=== PATIENT | male | born 1935 | race Caucasian/White ===

== ENCOUNTER 2018-05-05 11:08 | Day surgery (SDC) | payer OTHER ==
[~2018-05-05] VITALS: Ht 172.7 cm; Wt 93.6 kg
[~2018-05-05 11:08] MED LIST: AMYLIPPROD; ASPI81CH PO; ASPI81EC; BP MED; HYDACE5; HYOS0.375T PO; LISI20 PO; METTREX2.5 PO; Norco 5-325 Ta1 EACH PO; OXYC10TA19 PO; Prednisone10 MG PO; ROFE25; Vitamin B Comple1 EA PO; WARF4 PO
== END 2018-05-05 13:26 | disposition home or self-care (01) ==
LOC: ORSCSDS 11:08
PROVIDERS: Ophthalmology
PROC: 08RK3JZ Replacement of Left Lens with Synthetic Substitute, Percutaneous Approach (ICD-10-PCS; principal; 2018-05-05 12:30)
DX: H25.12 Age-related nuclear cataract, left eye (principal); H21.81 Floppy iris syndrome; I12.9 Hypertensive chronic kidney disease with stage 1 through stage 4 chronic kidney disease, or unspecified chronic kidney disease; N18.3 Chronic kidney disease, stage 3 (moderate); E78.5 Hyperlipidemia, unspecified; N40.0 Benign prostatic hyperplasia without lower urinary tract symptoms; Z79.82 Long term (current) use of aspirin; Z79.899 Other long term (current) drug therapy
CPT/HCPCS: J2250; J3010; J7120; V2632

== ENCOUNTER 2020-05-20 00:34 | Day surgery (SDC) | payer OTHER ==
[~2020-05-20 00:34] MED LIST changes: +FOLI1 PO; +LOSA50 PO; +OLOP.1OPSO BOTHEYES; +TAMS.4ER PO
== END 2020-05-20 22:49 | disposition home or self-care (01) ==
LOC: WOUND 00:34
DX: L89.322 Pressure ulcer of left buttock, stage 2 (principal); I10 Essential (primary) hypertension; J44.9 Chronic obstructive pulmonary disease, unspecified; E78.5 Hyperlipidemia, unspecified; Z88.1 Allergy status to other antibiotic agents; Z79.82 Long term (current) use of aspirin; Z79.899 Other long term (current) drug therapy
CPT/HCPCS: G0463

== ENCOUNTER 2020-05-30 00:29 | Day surgery (SDC) | payer OTHER | END 2020-05-30 22:44 | disposition home or self-care (01) | LOC: WOUND 00:29 | DX: L89.892 Pressure ulcer of other site, stage 2 (principal) | CPT/HCPCS: G0463 ==

== ENCOUNTER 2020-07-23 09:15 | Day surgery (SDC) | payer OTHER ==
[~2020-07-23] VITALS: Ht 170.2 cm; Wt 96.1 kg
[~2020-07-23 09:15] MED LIST changes: +VITAMIN D325 MC3 PO
== END 2020-07-23 11:20 | disposition home or self-care (01) ==
LOC: ORSCSDS 09:15
PROVIDERS: Student in an Organized Health Care Education/Training Program
PROC: 0DB58ZX Excision of Esophagus, Via Natural or Artificial Opening Endoscopic, Diagnostic (ICD-10-PCS; principal; 2020-07-23 10:30)
PROC: 0DB88ZX Excision of Small Intestine, Via Natural or Artificial Opening Endoscopic, Diagnostic (ICD-10-PCS; principal; 2020-07-23 10:30)
PROC: 0DB68ZX Excision of Stomach, Via Natural or Artificial Opening Endoscopic, Diagnostic (ICD-10-PCS; principal; 2020-07-23 10:30)
DX: R13.10 Dysphagia, unspecified (principal); K29.80 Duodenitis without bleeding; B37.9 Candidiasis, unspecified; I10 Essential (primary) hypertension; K29.70 Gastritis, unspecified, without bleeding; D64.9 Anemia, unspecified; E78.5 Hyperlipidemia, unspecified; K21.9 Gastro-esophageal reflux disease without esophagitis; J44.9 Chronic obstructive pulmonary disease, unspecified; E66.9 Obesity, unspecified; Z68.35 Body mass index [BMI] 35.0-35.9, adult; Z68.33 Body mass index [BMI] 33.0-33.9, adult; Z79.82 Long term (current) use of aspirin; Z79.899 Other long term (current) drug therapy
CPT/HCPCS: 88305; 88342; J2704; J7120

== ENCOUNTER 2020-08-22 07:37 | Day surgery (SDC) | payer OTHER | END 2020-08-22 23:02 | disposition home or self-care (01) | LOC: WOUND 07:37 | DX: L89.892 Pressure ulcer of other site, stage 2 (principal); L40.50 Arthropathic psoriasis, unspecified; I10 Essential (primary) hypertension; K21.9 Gastro-esophageal reflux disease without esophagitis; E78.5 Hyperlipidemia, unspecified; J44.9 Chronic obstructive pulmonary disease, unspecified; Z96.651 Presence of right artificial knee joint; Z79.82 Long term (current) use of aspirin; Z79.899 Other long term (current) drug therapy; Z88.1 Allergy status to other antibiotic agents; Z88.8 Allergy status to other drugs, medicaments and biological substances; Z91.018 Allergy to other foods | CPT/HCPCS: G0463 ==

== ENCOUNTER 2020-12-01 08:37 | Inpatient (IN) | payer OTHER, MEDICARE ==
[~2020-12-01] VITALS: Ht 170.2 cm; Wt 90.0 kg
[~2020-12-01 08:37] MED LIST changes: -ASPI81CH PO; +Aspir 8181 MG PO
[2020-12-01 09:21] LABS: BASOPHILS ABSOLUTE AUTO 0.02 K/mm3 (0.00-0.23); BASOPHILS PERCENT AUTO 0 % (0-2); EOSINOPHILS ABSOLUTE AUTO 0.02 K/mm3 (0.00-0.68); EOSINOPHILS PERCENT AUTO 0 % (0-6); Hematocrit 35.5 % (37.0-53.0); Hemoglobin 11.6 g/dL (13.5-17.5); IMMATURE GRAN ABSOLUTE AUTO 0.04 K/mm3 (0.00-0.10); IMMATURE GRAN PERCENT AUTO 0 % (0-1); LYMPHOCYTES ABSOLUTE AUTO 0.58 K/mm3 (0.84-5.20); LYMPHOCYTES PERCENT AUTO 5 % (21-46); MONOCYTES ABSOLUTE AUTO 0.93 K/mm3 (0.16-1.47); MONOCYTES PERCENT AUTO 8 % (4-13); Mean Corpuscular HGB 31.4 pg (26.0-34.0); Mean Corpuscular HGB Conc 32.7 g/dL (31.5-36.5); Mean Corpuscular Volume 96 fL (80-100); Mean Platelet Volume 9.8 fL (9.1-12.4); NEUTROPHILS ABSOLUTE AUTO 9.83 K/mm3 (1.96-9.15); NEUTROPHILS PERCENT AUTO 86 % (41-73); Platelet Count 182 K/mm3 (150-400); RDW Coefficient Variation 14.6 % (11.7-14.2); RDW Standard Deviation 51.2 fL (35.1-46.3); Red Blood Cell Count 3.69 M/mm3 (4.30-5.90); White Blood Cell Count 11.42 K/mm3 (4.00-11.30)
[2020-12-01 09:43] LABS: Alanine Aminotransfer (ALT/SGP 13 U/L (12-78); Albumin/Globulin Ratio 0.8 (0.8-1.8); Alk Phos 70 U/L (50-136); Anion Gap 6 mmol/L (6-16); Aspartate Aminotrans (AST/SGOT 14 U/L (12-37); Bilirubin, Total 0.9 mg/dL (0.1-1.0); Blood Urea Nitrogen 27 mg/dL (8-24); Bun/Creatinine Ratio 16.8 (12.0-20.0); CO2, Blood 24 mmol/L (21-32); Calcium, Blood 8.6 mg/dL (8.5-10.1); Chloride, Blood 106 mmol/L (98-108); Creatinine, Blood 1.61 mg/dL (0.60-1.20); Globulin, Blood 3.9 g/dL (2.2-4.0); Glomerular Filtration Rate 43 (60-); Glucose, Blood 115 mg/dL (70-99); Potassium, Blood 3.9 mmol/L (3.5-5.5); Sodium, Blood 136 mmol/L (136-145); Total Protein, Blood 6.9 g/dL (6.4-8.2); Troponin I <0.015 ng/mL (0.000-0.040)
[2020-12-01 09:46] LABS: Thyroid Stimulating Hormone 0.507 uIU/mL (0.360-4.800)
[2020-12-01 10:06] LABS: Source, Urine Voided
[2020-12-01 10:10] LABS: Bilirubin, Urine Neg (Neg); Blood, Urine 3+ (Neg); Glucose Qualitative, Urine Neg (Neg); Ketones, Urine 1+ (Neg); Leukocyte Esterase, Urine Neg (Neg); Nitrite, Urine Neg (Neg); Protein, Urine 3+ (Neg); Specific Gravity, Urine 1.015 (1.003-1.022); Urobilinogen, Urine NORM (Normal)
[2020-12-01 10:12] LABS: Influenza A, PCR NEGATIVE (NEGATIVE); Influenza B, PCR NEGATIVE (NEGATIVE); Resp Syncytial Virus, PCR NEGATIVE (NEGATIVE); SARS-Cov-2 (COVID-19) PCR, MMC NEGATIVE (NEGATIVE)
[2020-12-01 10:19] LABS: Appearance, Urine Clear (Clear); Color, Urine Yellow (P-Yellow)
[2020-12-01 10:22] LABS: Amorphous Light (0-Heavy); Bacteria Rare /hpf; Squamous Epithelial Cells Few /hpf (Few); White Blood Cells, Urine 0-2 /hpf (0-5)
[2020-12-01] MEDS ORDERED: FINA5 PO (12:50)
--- NOTE | 2020-12-01 16:57 | NUR ---
ADMISSION AND SHIFT SUMMARY PT ARRIVED TO UNIT AT APPROX 1250 FROM THE ED. PT IS A&Ox4 AND DENIES ANY PAIN, SOB, COUGH, OR DISTRESS. PT ABLE TO BWAT AND REQUIRED 2P ASSIST c GAIT BELT TO TRANSFER FROM [facility] TO BED. CALL LIGHT IS WITHIN REACH AND PT AWARE OF HIS LIMITATIONS. BED ALARM IS ON FOR EXTRA PRECAUTION DUE TO PT BEING HIGH FALL RISK. CHEST X RAY SHOWS PNA OF THE R LUNG, LUNG SOUNDS ARE CLEAR, SLIGHTY DIMINISHED ON R SIDE. PT ON RA AND SATING ABOVE THE 90'S. ADMISSION COMPLETED, INFORMATION PROVIDED BY PT AND . PT HAD A BM THIS SHIFT AND IS USES URINAL INDEPENDENTLY. PT IS CURRENTLY LYING IN BED VISITING WITH .
[2020-12-02 04:27] LABS: BASOPHILS ABSOLUTE AUTO 0.01 K/mm3 (0.00-0.23); BASOPHILS PERCENT AUTO 0 % (0-2); EOSINOPHILS ABSOLUTE AUTO 0.11 K/mm3 (0.00-0.68); EOSINOPHILS PERCENT AUTO 2 % (0-6); Hematocrit 32.4 % (37.0-53.0); Hemoglobin 10.4 g/dL (13.5-17.5); IMMATURE GRAN ABSOLUTE AUTO 0.02 K/mm3 (0.00-0.10); IMMATURE GRAN PERCENT AUTO 0 % (0-1); LYMPHOCYTES ABSOLUTE AUTO 0.79 K/mm3 (0.84-5.20); LYMPHOCYTES PERCENT AUTO 11 % (21-46); MONOCYTES ABSOLUTE AUTO 0.79 K/mm3 (0.16-1.47); MONOCYTES PERCENT AUTO 11 % (4-13); Mean Corpuscular HGB Conc 32.1 g/dL (31.5-36.5); Mean Corpuscular Volume 97 fL (80-100); Mean Platelet Volume 9.7 fL (9.1-12.4); NEUTROPHILS PERCENT AUTO 76 % (41-73); Platelet Count 179 K/mm3 (150-400); RDW Coefficient Variation 14.7 % (11.7-14.2); RDW Standard Deviation 51.8 fL (35.1-46.3); Red Blood Cell Count 3.35 M/mm3 (4.30-5.90); White Blood Cell Count 7.22 K/mm3 (4.00-11.30)
[2020-12-02 04:48] LABS: Albumin, Blood 2.4 g/dL (3.4-5.0); Albumin/Globulin Ratio 0.6 (0.8-1.8); Bilirubin, Total 0.5 mg/dL (0.1-1.0); Calcium, Blood 8.2 mg/dL (8.5-10.1); Creatinine, Blood 1.53 mg/dL (0.60-1.20); Globulin, Blood 3.7 g/dL (2.2-4.0); Magnesium, Blood 1.9 mg/dL (1.6-2.4); Potassium, Blood 3.9 mmol/L (3.5-5.5); Total Protein, Blood 6.1 g/dL (6.4-8.2)
--- NOTE | 2020-12-02 05:28 | NUR ---
Samm had no complaints of pain or discomfort overnight. he slept well and stayed in bed using the urinal when he had to void... Urine is clear yellow. VSS. pleasant and cooperative with care,
[2020-12-02 07:58] LABS: Percent Saturation 12.4 % (20.0-50.0)
[2020-12-02 10:51] LABS: Free Thyroxine 1.35 ng/dL (0.70-1.60); Triiodothyronine, Free 1.64 pg/mL (2.18-3.98)
--- NOTE | 2020-12-02 12:47 | NUR ---
Echocardiogram completed.
--- NOTE | 2020-12-02 18:50 | NUR ---
SHIFT SUMMARY: NO ACUTE CHANGES TO REPORT THIS SHIFT. PT A&O; IMPULSIVE; FORGETFUL; CALM AND COOPERATIVE WITH CARE. NO C/O PAIN THIS SHIFT. PT WEAK; MULTIPLE GROUND-LEVEL FALLS @ HOME; HEAD CT NEGATIVE. PNEUMONIA; BLOOD CULTURES STARTED; EMPIRIC ABX CONTINUING. BED ALARM & CHAIR ALARM ON FOR SAFETY. REPORT GIVEN TO ONCOMING RN.
--- NOTE | 2020-12-03 03:40 | NUR ---
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 PLEASANT AND COOPERATIVE WITH CARE. DENIES PAIN OR SOB. CURRENTLY ON RA WITH SATS GREATER THAN 92. VSS, NO ACUTE CHANGES AT THIS TIME. BED IN LOWEST POSITION WITH CALL LIGHT IN REACH. WILL CONTINUE TO MONITOR AND REPORT TO ONCOMING RN.
[2020-12-03 04:30] LABS: BASOPHILS ABSOLUTE AUTO 0.02 K/mm3 (0.00-0.23); BASOPHILS PERCENT AUTO 0 % (0-2); EOSINOPHILS ABSOLUTE AUTO 0.14 K/mm3 (0.00-0.68); EOSINOPHILS PERCENT AUTO 3 % (0-6); Hematocrit 31.9 % (37.0-53.0); Hemoglobin 10.2 g/dL (13.5-17.5); IMMATURE GRAN ABSOLUTE AUTO 0.01 K/mm3 (0.00-0.10); IMMATURE GRAN PERCENT AUTO 0 % (0-1); LYMPHOCYTES ABSOLUTE AUTO 0.78 K/mm3 (0.84-5.20); LYMPHOCYTES PERCENT AUTO 15 % (21-46); MONOCYTES ABSOLUTE AUTO 0.22 K/mm3 (0.16-1.47); MONOCYTES PERCENT AUTO 4 % (4-13); Mean Corpuscular Volume 97 fL (80-100); Mean Platelet Volume 9.9 fL (9.1-12.4); NEUTROPHILS ABSOLUTE AUTO 4.18 K/mm3 (1.96-9.15); NEUTROPHILS PERCENT AUTO 78 % (41-73); Platelet Count 207 K/mm3 (150-400); RDW Coefficient Variation 14.7 % (11.7-14.2); RDW Standard Deviation 51.6 fL (35.1-46.3); Red Blood Cell Count 3.29 M/mm3 (4.30-5.90); White Blood Cell Count 5.35 K/mm3 (4.00-11.30)
[2020-12-03 04:51] LABS: Albumin, Blood 2.4 g/dL (3.4-5.0); Albumin/Globulin Ratio 0.7 (0.8-1.8); Bilirubin, Total 0.4 mg/dL (0.1-1.0); Bun/Creatinine Ratio 19.6 (12.0-20.0); Calcium, Blood 8.2 mg/dL (8.5-10.1); Creatinine, Blood 1.48 mg/dL (0.60-1.20); Globulin, Blood 3.5 g/dL (2.2-4.0); Potassium, Blood 3.7 mmol/L (3.5-5.5); Total Protein, Blood 5.9 g/dL (6.4-8.2)
[2020-12-03] MEDS ORDERED: METO25 PO (15:43)
[2020-12-03] MEDS ORDERED: LEVFLO500 (15:45)
--- NOTE | 2020-12-03 18:06 | NUR ---
PATIENT DISCHARGE: PATIENT DISCHARGED TO HOME / XFR TO HOME HEALTH THIS SHIFT. MEDICATION RECONCILIATION COMPLETED; MED LIST FAXED TO [facility]. DISCHARGE EDUCATION COMPLETED WITH PATIENT AND FAMILY. PATIENT TRANSPORTED TO EXIT BY [facility] STAFF WITH WHEELCHAIR AT 1722. PATIENT DEPARTED [facility] VIA PRIVATE AUTO.
== END 2020-12-03 16:45 | disposition home health service (06) | DRG 195 ==
LOC: ER 08:37 → MEDS 11:14
PROVIDERS: Emergency Medicine; ADMIT Internal Medicine
DX: J18.9 Pneumonia, unspecified organism (principal); I12.9 Hypertensive chronic kidney disease with stage 1 through stage 4 chronic kidney disease, or unspecified chronic kidney disease; N18.9 Chronic kidney disease, unspecified; I51.7 Cardiomegaly; Z20.822 Contact with and (suspected) exposure to COVID-19; L40.50 Arthropathic psoriasis, unspecified; E04.1 Nontoxic single thyroid nodule; N40.0 Benign prostatic hyperplasia without lower urinary tract symptoms; Z79.82 Long term (current) use of aspirin
CPT/HCPCS: 0241U; 36415; 70450; 71045; 71260; 76536; 80053; 81001; 82607; 82728; 82746; 83540; 83550; 83605; 83735; 83880; 84145; 84439; 84443; 84481; 84484; 85025; 85651; 87040; 93005; 93010; 93306; 96365; 96366; 96372-59; 97116; 97530; 99285-25; A9270; J1650; J1956; J3420; J7030; J8610; Q9967

== ENCOUNTER 2021-01-14 00:35 | Day surgery (SDC) | payer OTHER ==
[~2021-01-14 00:35] MED LIST changes: +FINA5 PO; +LEVFLO500; +METO25 PO
== END 2021-01-14 22:40 | disposition home or self-care (01) ==
LOC: WOUND 00:35
DX: L89.312 Pressure ulcer of right buttock, stage 2 (principal); L89.322 Pressure ulcer of left buttock, stage 2; I10 Essential (primary) hypertension; K21.9 Gastro-esophageal reflux disease without esophagitis; E78.5 Hyperlipidemia, unspecified; J44.9 Chronic obstructive pulmonary disease, unspecified; K58.9 Irritable bowel syndrome, unspecified
CPT/HCPCS: G0463

== ENCOUNTER 2021-01-28 02:56 | Day surgery (SDC) | payer OTHER | END 2021-01-28 23:01 | disposition home or self-care (01) | LOC: WOUND 02:56 | DX: L89.312 Pressure ulcer of right buttock, stage 2 (principal); L89.322 Pressure ulcer of left buttock, stage 2 | CPT/HCPCS: G0463 ==

== ENCOUNTER 2021-07-12 18:22 | Emergency (ER) | payer OTHER ==
[~2021-07-12] VITALS: Ht 172.7 cm; Wt 70.3 kg
[2021-07-12 19:02] LABS: BASOPHILS PERCENT AUTO 0 % (0-2); EOSINOPHILS PERCENT AUTO 0 % (0-6); Hematocrit 34.1 % (37.0-53.0); Hemoglobin 11.2 g/dL (13.5-17.5); IMMATURE GRAN ABSOLUTE AUTO 0.02 K/mm3 (0.00-0.10); IMMATURE GRAN PERCENT AUTO 1 % (0-1); LYMPHOCYTES ABSOLUTE AUTO 0.49 K/mm3 (0.84-5.20); LYMPHOCYTES PERCENT AUTO 15 % (21-46); MONOCYTES ABSOLUTE AUTO 0.12 K/mm3 (0.16-1.47); MONOCYTES PERCENT AUTO 4 % (4-13); Mean Corpuscular HGB 32.1 pg (26.0-34.0); Mean Corpuscular HGB Conc 32.8 g/dL (31.5-36.5); Mean Corpuscular Volume 98 fL (80-100); Mean Platelet Volume 10.3 fL (9.1-12.4); NEUTROPHILS ABSOLUTE AUTO 2.73 K/mm3 (1.96-9.15); NEUTROPHILS PERCENT AUTO 81 % (41-73); Platelet Count 100 K/mm3 (150-400); RDW Coefficient Variation 14.5 % (11.7-14.2); RDW Standard Deviation 51.8 fL (35.1-46.3); Red Blood Cell Count 3.49 M/mm3 (4.30-5.90); White Blood Cell Count 3.36 K/mm3 (4.00-11.30)
[2021-07-12 19:13] LABS: Albumin/Globulin Ratio 0.9 (0.8-1.8); Bilirubin, Total 0.7 mg/dL (0.1-1.0); Bun/Creatinine Ratio 15.7 (12.0-20.0); Calcium, Blood 8.1 mg/dL (8.5-10.1); Creatinine, Blood 1.72 mg/dL (0.60-1.20); Globulin, Blood 3.3 g/dL (2.2-4.0); Potassium, Blood 4.2 mmol/L (3.5-5.5); Total Protein, Blood 6.3 g/dL (6.4-8.2)
[2021-07-12] MEDS ORDERED: METTREX2.5 PO (21:32)
[2021-07-12] MEDS ORDERED: METO25 PO (21:33)
[2021-07-12] MEDS ORDERED: LOSA25 PO ×2 (21:34→21:49)
[2021-07-12] MEDS ORDERED: C COMPLEX1000 M1 PO (21:34)
[2021-07-12] MEDS ORDERED: Vitamin B Comple1 EA PO (21:35)
[2021-07-12] MEDS ORDERED: IRON PO (21:36)
== END 2021-07-12 22:34 | disposition home or self-care (01) ==
LOC: ER 18:22
PROVIDERS: Emergency Medicine
DX: U07.1 COVID-19 (principal); I10 Essential (primary) hypertension; Z88.1 Allergy status to other antibiotic agents; Z79.899 Other long term (current) drug therapy
CPT/HCPCS: 36415; 71045; 80053; 83605; 85025; 87040; 99285-25; A9270; M0243; Q0243

== ENCOUNTER 2021-07-23 10:29 | Day surgery (SDC) | payer OTHER ==
[~2021-07-23 10:29] MED LIST changes: +C COMPLEX1000 M1 PO; +IRON PO; +LOSA25 PO
== END 2021-07-23 23:23 | disposition home or self-care (01) ==
LOC: WOUND 10:29
DX: L89.322 Pressure ulcer of left buttock, stage 2 (principal); L89.311 Pressure ulcer of right buttock, stage 1; I10 Essential (primary) hypertension; E78.5 Hyperlipidemia, unspecified; K21.9 Gastro-esophageal reflux disease without esophagitis; J44.9 Chronic obstructive pulmonary disease, unspecified; Z88.1 Allergy status to other antibiotic agents
CPT/HCPCS: G0463

== ENCOUNTER 2021-08-05 12:09 | Emergency (ER) | payer OTHER ==
[~2021-08-05] VITALS: Ht 172.7 cm; Wt 80.7 kg
[2021-08-05 13:12] LABS: BASOPHILS ABSOLUTE AUTO 0.03 K/mm3 (0.00-0.23); BASOPHILS PERCENT AUTO 0 % (0-2); EOSINOPHILS ABSOLUTE AUTO 0.24 K/mm3 (0.00-0.68); EOSINOPHILS PERCENT AUTO 3 % (0-6); Hematocrit 35.2 % (37.0-53.0); Hemoglobin 11.4 g/dL (13.5-17.5); IMMATURE GRAN ABSOLUTE AUTO 0.02 K/mm3 (0.00-0.10); IMMATURE GRAN PERCENT AUTO 0 % (0-1); LYMPHOCYTES ABSOLUTE AUTO 1.48 K/mm3 (0.84-5.20); LYMPHOCYTES PERCENT AUTO 17 % (21-46); MONOCYTES ABSOLUTE AUTO 0.48 K/mm3 (0.16-1.47); MONOCYTES PERCENT AUTO 5 % (4-13); Mean Corpuscular HGB Conc 32.4 g/dL (31.5-36.5); Mean Corpuscular Volume 96 fL (80-100); Mean Platelet Volume 10.3 fL (9.1-12.4); NEUTROPHILS ABSOLUTE AUTO 6.73 K/mm3 (1.96-9.15); NEUTROPHILS PERCENT AUTO 75 % (41-73); Platelet Count 199 K/mm3 (150-400); RDW Coefficient Variation 13.9 % (11.7-14.2); RDW Standard Deviation 49.1 fL (35.1-46.3); Red Blood Cell Count 3.68 M/mm3 (4.30-5.90); White Blood Cell Count 8.98 K/mm3 (4.00-11.30)
[2021-08-05 13:29] LABS: International Normalized Ratio 1.05
[2021-08-05 13:34] LABS: Albumin, Blood 2.8 g/dL (3.4-5.0); Albumin/Globulin Ratio 0.7 (0.8-1.8); Bilirubin, Total 0.8 mg/dL (0.1-1.0); Bun/Creatinine Ratio 15.3 (12.0-20.0); Calcium, Blood 8.8 mg/dL (8.5-10.1); Creatinine, Blood 1.44 mg/dL (0.60-1.20); Globulin, Blood 4.3 g/dL (2.2-4.0); Potassium, Blood 3.7 mmol/L (3.5-5.5); Total Protein, Blood 7.1 g/dL (6.4-8.2)
[2021-08-05] MEDS ORDERED: Protopic100 G1 (15:47)
== END 2021-08-05 17:01 | disposition home or self-care (01) ==
LOC: ER 12:09
PROVIDERS: Physician Assistant
DX: I26.99 Other pulmonary embolism without acute cor pulmonale (principal); I12.9 Hypertensive chronic kidney disease with stage 1 through stage 4 chronic kidney disease, or unspecified chronic kidney disease; K21.9 Gastro-esophageal reflux disease without esophagitis; N18.9 Chronic kidney disease, unspecified; Z88.8 Allergy status to other drugs, medicaments and biological substances; Z88.1 Allergy status to other antibiotic agents; Z79.899 Other long term (current) drug therapy; Z79.82 Long term (current) use of aspirin
CPT/HCPCS: 36415; 80053; 85025; 85610; 85730; 93005; 93010; 99283-25

== ENCOUNTER → 2021-08-13 | Outpatient (CLI) | payer OTHER ==
[~2021-08-13] MED LIST changes: +Protopic100 G1
[2021-08-14 01:05] LABS: Campylobacter Sp Not Detected (NOT DETECT)
[2021-08-14 01:06] LABS: Adenovirus F 40/41 Not Detected (NOT DETECT); Astrovirus Not Detected (NOT DETECT); Cryptosporidium Not Detected (NOT DETECT); Cyclospora Cayetanensis Not Detected (NOT DETECT); E. Coli O157 Not Detected (NOT DETECT); Entamoeba Histolytica Not Detected (NOT DETECT); Enteroaggregative E. coli-EAEC Not Detected (NOT DETECT); Enteropathogenic E. coli-EPEC Not Detected (NOT DETECT); Enterotoxigenic E. coli-ETEC Not Detected (NOT DETECT); Giardia Lamblia Not Detected (NOT DETECT); Norovirus GI/GII Not Detected (NOT DETECT); Plesiomonas Shigelloides Not Detected (NOT DETECT); Rotavirus A Not Detected (NOT DETECT); Salmonella Sp Not Detected (NOT DETECT); Sapovirus Not Detected (NOT DETECT); Shiga Toxin-prod E. coli-STEC Not Detected (NOT DETECT); Shigella/Enteroin E. coli-EIEC Not Detected (NOT DETECT); Vibrio Cholerae Not Detected (NOT DETECT); Vibrio Sp Not Detected (NOT DETECT); Yersinia Enterocolitica Not Detected (NOT DETECT)
== END | disposition home or self-care (01) ==
LOC: LAB FUT 08-12 13:25 → LAB SHORT 07:00 → LAB 07:00
PROVIDERS: Family Medicine
DX: R19.7 Diarrhea, unspecified (principal)
CPT/HCPCS: 0097U

== ENCOUNTER 2021-10-02 15:24 | Inpatient (IN) | payer OTHER ==
[~2021-10-02] VITALS: Ht 170.2 cm; Wt 93.5 kg
[2021-10-02 16:51] LABS: BASOPHILS ABSOLUTE AUTO 0.03 K/mm3 (0.00-0.23); BASOPHILS PERCENT AUTO 0 % (0-2); EOSINOPHILS ABSOLUTE AUTO 0.14 K/mm3 (0.00-0.68); EOSINOPHILS PERCENT AUTO 2 % (0-6); Hematocrit 35.6 % (37.0-53.0); Hemoglobin 11.3 g/dL (13.5-17.5); IMMATURE GRAN ABSOLUTE AUTO 0.04 K/mm3 (0.00-0.10); IMMATURE GRAN PERCENT AUTO 0 % (0-1); LYMPHOCYTES ABSOLUTE AUTO 1.19 K/mm3 (0.84-5.20); LYMPHOCYTES PERCENT AUTO 13 % (21-46); MONOCYTES ABSOLUTE AUTO 0.34 K/mm3 (0.16-1.47); MONOCYTES PERCENT AUTO 4 % (4-13); Mean Corpuscular HGB 29.1 pg (26.0-34.0); Mean Corpuscular HGB Conc 31.7 g/dL (31.5-36.5); Mean Corpuscular Volume 92 fL (80-100); Mean Platelet Volume 10.6 fL (9.1-12.4); NEUTROPHILS ABSOLUTE AUTO 7.68 K/mm3 (1.96-9.15); NEUTROPHILS PERCENT AUTO 82 % (41-73); Platelet Count 299 K/mm3 (150-400); RDW Coefficient Variation 14.1 % (11.7-14.2); RDW Standard Deviation 47.4 fL (35.1-46.3); Red Blood Cell Count 3.88 M/mm3 (4.30-5.90); White Blood Cell Count 9.42 K/mm3 (4.00-11.30)
[2021-10-02 16:55] LABS: Albumin, Blood 2.8 g/dL (3.4-5.0); Albumin/Globulin Ratio 0.7 (0.8-1.8); Bilirubin, Total 0.4 mg/dL (0.1-1.0); Bun/Creatinine Ratio 14.4 (12.0-20.0); Calcium, Blood 8.7 mg/dL (8.5-10.1); Creatinine, Blood 1.53 mg/dL (0.60-1.20); Globulin, Blood 3.9 g/dL (2.2-4.0); Total Protein, Blood 6.7 g/dL (6.4-8.2)
[2021-10-02 17:15] LABS: Troponin I 0.834 ng/mL (0.000-0.040)
[2021-10-02] MEDS ORDERED: ELIQUIS2.5 M1 PO (18:11)
[2021-10-02] MEDS ORDERED: TAMSULOSIN HCL0.4 M1 PO (18:11)
[2021-10-02] MEDS ORDERED: METO50ER PO (18:12)
[2021-10-02] MEDS ORDERED: TRAM50 PO (18:13)
[2021-10-02] MEDS ORDERED: FINA5 PO (18:13)
[2021-10-02] MEDS ORDERED: FOLI1 PO (18:13)
[2021-10-02 18:54] LABS: International Normalized Ratio 1.14; Prothrombin Time Results 11.9 Sec (9.7-11.5)
[2021-10-03 02:06] LABS: BASOPHILS ABSOLUTE AUTO 0.02 K/mm3 (0.00-0.23); BASOPHILS PERCENT AUTO 0 % (0-2); EOSINOPHILS ABSOLUTE AUTO 0.15 K/mm3 (0.00-0.68); EOSINOPHILS PERCENT AUTO 2 % (0-6); Hematocrit 35.4 % (37.0-53.0); Hemoglobin 11.3 g/dL (13.5-17.5); IMMATURE GRAN ABSOLUTE AUTO 0.04 K/mm3 (0.00-0.10); IMMATURE GRAN PERCENT AUTO 0 % (0-1); LYMPHOCYTES ABSOLUTE AUTO 1.22 K/mm3 (0.84-5.20); LYMPHOCYTES PERCENT AUTO 14 % (21-46); MONOCYTES ABSOLUTE AUTO 0.32 K/mm3 (0.16-1.47); MONOCYTES PERCENT AUTO 4 % (4-13); Mean Corpuscular HGB 29.1 pg (26.0-34.0); Mean Corpuscular HGB Conc 31.9 g/dL (31.5-36.5); Mean Corpuscular Volume 91 fL (80-100); Mean Platelet Volume 9.9 fL (9.1-12.4); NEUTROPHILS ABSOLUTE AUTO 7.15 K/mm3 (1.96-9.15); NEUTROPHILS PERCENT AUTO 80 % (41-73); Platelet Count 277 K/mm3 (150-400); RDW Coefficient Variation 14.1 % (11.7-14.2); RDW Standard Deviation 47.6 fL (35.1-46.3); Red Blood Cell Count 3.88 M/mm3 (4.30-5.90)
[2021-10-03 02:30] LABS: Albumin, Blood 2.8 g/dL (3.4-5.0); Albumin/Globulin Ratio 0.7 (0.8-1.8); Bilirubin, Total 0.4 mg/dL (0.1-1.0); Bun/Creatinine Ratio 15.9 (12.0-20.0); Calcium, Blood 8.7 mg/dL (8.5-10.1); Creatinine, Blood 1.64 mg/dL (0.60-1.20); Globulin, Blood 3.8 g/dL (2.2-4.0); Potassium, Blood 3.7 mmol/L (3.5-5.5); Total Protein, Blood 6.6 g/dL (6.4-8.2)
[2021-10-03 02:32] LABS: Troponin I 0.828 ng/mL (0.000-0.040)
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
--- NOTE | 2021-10-03 11:31 | NUR ---
PATIENT IS ALERT AND ORIENTED X4. NEURO WNL. ABLE TO MOVE ALL EXTREMITIES AND TURN SELF IN BED. PERRLA. DENIES NUMBNESS/TINGLING. ON ROOM AIR SATING ABOVE 94%. TELE SHOWING SINUS RHYTHM WITH PAC'S. HR 90'S. BP STABLE. DENIES CHEST PAIN/PRESSURE. HEPARIN DRIP INFUSING. MINIMAL EDEMA TO BLE. DENIES ABDOMINAL PAIN/NAUSEA. TOLERATING PO DIET. DR. AVALOS IN TO SEE PATIENT THIS MORNING DISCUSSED CARDIAC CATH. PATIENT SPOKE WITH AND VERBALIZED HE DID NOT WANT ANY PROCEDURES DONE. DR. AVALOS AND CARE TEAM UPDATED. ECHO AND EKG DONE THIS AM. PENDING ECHO RESULTS. USING URINAL IN BED. CALL LIGHT IN REACH. DENIES NEEDS AT THIS TIME. WILL CONTINUE TO MONITOR.
--- NOTE | 2021-10-03 18:19 | NUR ---
SHIFT SUMMARY: NO ACUTE CHANGES. SEE PREVIOUS NOTE. NO CHANGES IN TELE. PATIENT REMAINS CHEST PAIN FREE. HEPARIN DRIP INFUSING. USING BS WITH [address] Steele IN TO SEE PATIENT. PLAN FOR TO COME IN TOMMORROW AT 0900 TO DISCUSS ANGIOGRAM WITH DOCTORS. TOLERATING PO DIET. DENIES NEEDS AT THIS TIME. VITAL SIGNS STABLE. WILL CONTINUE TO MONITOR AND REPORT OFF.
[2021-10-04 04:16] LABS: BASOPHILS ABSOLUTE AUTO 0.02 K/mm3 (0.00-0.23); BASOPHILS PERCENT AUTO 0 % (0-2); EOSINOPHILS ABSOLUTE AUTO 0.19 K/mm3 (0.00-0.68); EOSINOPHILS PERCENT AUTO 2 % (0-6); Hematocrit 35.3 % (37.0-53.0); Hemoglobin 11.1 g/dL (13.5-17.5); IMMATURE GRAN ABSOLUTE AUTO 0.03 K/mm3 (0.00-0.10); IMMATURE GRAN PERCENT AUTO 0 % (0-1); LYMPHOCYTES PERCENT AUTO 17 % (21-46); MONOCYTES ABSOLUTE AUTO 0.38 K/mm3 (0.16-1.47); MONOCYTES PERCENT AUTO 5 % (4-13); Mean Corpuscular HGB 28.6 pg (26.0-34.0); Mean Corpuscular HGB Conc 31.4 g/dL (31.5-36.5); Mean Corpuscular Volume 91 fL (80-100); Mean Platelet Volume 10.3 fL (9.1-12.4); NEUTROPHILS ABSOLUTE AUTO 6.42 K/mm3 (1.96-9.15); NEUTROPHILS PERCENT AUTO 76 % (41-73); Platelet Count 270 K/mm3 (150-400); RDW Coefficient Variation 14.3 % (11.7-14.2); Red Blood Cell Count 3.88 M/mm3 (4.30-5.90); White Blood Cell Count 8.44 K/mm3 (4.00-11.30)
[2021-10-04 04:35] LABS: Bun/Creatinine Ratio 17.8 (12.0-20.0); Calcium, Blood 8.6 mg/dL (8.5-10.1); Creatinine, Blood 1.63 mg/dL (0.60-1.20); Potassium, Blood 3.6 mmol/L (3.5-5.5)
--- NOTE | 2021-10-04 06:05 | NUR ---
SHIFT SUMMARY ASSUMED CARE OF PT AT 1900. PT IS A/OX4. HEART SOUNDS REGULAR. LUNG SOUNDS DIMINISHED AT BASES. PT DID NOT HAVE MUCH DIARRHEA THIS SHIFT. PT WAS CONTINENT WITH URINAL, CLEAR URINE OUTPUT. NYSTATIN CREAM APPLIED TO GROIN. PSORISIS NOTED T/O BODY. PT HAS BEEN NPO SINCE MIDNIGHT. CALL LIGHT IN REACH, BED IN LOWEST POSITION.
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
--- NOTE | 2021-10-04 10:31 | NUR ---
FAMILY MEETING THIS AM. DR. BARBA AND DR. SALCEDO IN TO SPEAK WITH FAMILY. PLAN FOR DISCHARGE AND FOLLOW UP OUTPATIENT FOR ANGIO WITH DR. AVALOS. LUDLOW MACHINE OPERATOR AND THIS RN GOT PATIENT UP WITH WALKER TO WALK. AT BEDSIDE. PATIENT WALKING AT BASLINE WITH SOME SLIGHT WEAKNESS. CONVERTED INTO AFIB THIS AM FROM SINUS RHYTHM. DR. BARBA AND DR. SALCEDO AWARE. PATIENT HR 120-130'S AT THIS TIME. WILL CONTINUE TO MONITOR.
--- NOTE | 2021-10-04 10:53 | NUR ---
UPDATE: CALL PLACED TO UPDATE DR. BARBA ON PATIENT HR AT REST 120-130'S.
[2021-10-04] MEDS ORDERED: ASPI81CH PO (13:08)
[2021-10-04] MEDS ORDERED: ATOR10 PO (13:09)
[2021-10-04] MEDS ORDERED: CARV3.125 PO (13:10)
[2021-10-04] MEDS ORDERED: CLOP75 PO (13:12)
[2021-10-04] MEDS ORDERED: NITR.4SL SL (13:13)
--- NOTE | 2021-10-04 14:50 | NUR ---
DISCHARGE: NO ACUTE CHANGES. PATIENT CONVERTED BACK TO NORMAL SINUS RHYTHM PRIOR TO LEAVING. HR 90'S. DENIES FEELING ANY SYMPTOMS WITH AFIB. DENIES PALPITATIONS, CHEST PAIN/CHEST PRESSURE. DISCHARGE INSTRUCTIONS AND FOLLOW UPP APPOINTMENTS REVIEWED WITH AND PATIENT. MEDICATIONS CALLED INTO [facility]. PATIENT TAKEN TO CARE VIA WHEELCHAIR WITH ALL PERSONAL BELONGINGS.
== END 2021-10-04 14:28 | disposition home or self-care (01) | DRG 281 ==
LOC: ER 15:24 → PCU 18:43 → ER 20:57 → PCU 21:10
PROVIDERS: Family Medicine; Physician Assistant; Student in an Organized Health Care Education/Training Program; ADMIT Internal Medicine
DX: I21.4 Non-ST elevation (NSTEMI) myocardial infarction (principal); I82.811 Embolism and thrombosis of superficial veins of right lower extremity; I42.9 Cardiomyopathy, unspecified; I48.91 Unspecified atrial fibrillation; I12.9 Hypertensive chronic kidney disease with stage 1 through stage 4 chronic kidney disease, or unspecified chronic kidney disease; N18.30 Chronic kidney disease, stage 3 unspecified; K21.9 Gastro-esophageal reflux disease without esophagitis; N40.0 Benign prostatic hyperplasia without lower urinary tract symptoms; L40.50 Arthropathic psoriasis, unspecified; Z66 Do not resuscitate; Z86.711 Personal history of pulmonary embolism; Z88.1 Allergy status to other antibiotic agents; Z79.01 Long term (current) use of anticoagulants; Z79.82 Long term (current) use of aspirin; Z79.899 Other long term (current) drug therapy
CPT/HCPCS: 36415; 71045; 80048; 80053; 83690; 83880; 84484; 85025; 85520; 85610; 85730; 93005; 93010; 93306; 96365; 96375; 96376; 99285-25; A9270; J1644; J1940

== ENCOUNTER 2021-11-03 05:51 | Day surgery (SDC) | payer OTHER ==
[~2021-11-03] VITALS: Ht 172.7 cm; Wt 99.0 kg
[~2021-11-03 05:51] MED LIST changes: +ASPI81CH PO; +ATOR10 PO; +CARV3.125 PO; +CLOP75 PO; +ELIQUIS2.5 M1 PO; +METO50ER PO; +NITR.4SL SL; +TAMSULOSIN HCL0.4 M1 PO; +TRAM50 PO
[2021-11-03] MEDS ORDERED: LOSA25 PO (06:49)
--- NOTE | 2021-11-03 10:15 | NUR ---
PT TR BAND FULLY DEFLATED. VSS. NO BLEEDING OR HEMATOMA NOTED.
--- NOTE | 2021-11-03 11:23 | NUR ---
PT ASSISTED WITH DRESSING SELF. VSS. NADN. PT TR BAND REMOVED. DOT DRESSING IN PLACE. SPLINT IN PLACE. PT AND S/O VERBALIZES UNDERSTNADING WRITTEN AND VERBAL ORDERS. PT IV DC'D. CATH INTACT. PRESSURE DSGA PPLIED. PT DC TO HOME VIA S/O BY [facility]
== END 2021-11-03 11:25 | disposition home or self-care (01) ==
LOC: MHTC 05:51
DX: I21.4 Non-ST elevation (NSTEMI) myocardial infarction (principal); I25.10 Atherosclerotic heart disease of native coronary artery without angina pectoris; I25.5 Ischemic cardiomyopathy; N18.9 Chronic kidney disease, unspecified; I12.9 Hypertensive chronic kidney disease with stage 1 through stage 4 chronic kidney disease, or unspecified chronic kidney disease; Z88.1 Allergy status to other antibiotic agents; Z91.018 Allergy to other foods
CPT/HCPCS: 76937; 93454; 99152; 99153; C1769; C1887; C1894; J1644; J2250; J3010; J7030; J7040; Q9967

== ENCOUNTER 2021-11-04 15:57 | Inpatient (IN) | payer OTHER ==
[~2021-11-04] VITALS: Ht 172.7 cm; Wt 96.3 kg
[~2021-11-04 15:57] MED LIST changes: -ATOR10 PO; +ATOR20 PO
[2021-11-04 16:38] LABS: BASOPHILS ABSOLUTE AUTO 0.02 K/mm3 (0.00-0.23); BASOPHILS PERCENT AUTO 0 % (0-2); EOSINOPHILS ABSOLUTE AUTO 0.17 K/mm3 (0.00-0.68); EOSINOPHILS PERCENT AUTO 2 % (0-6); Hematocrit 34.9 % (37.0-53.0); Hemoglobin 10.7 g/dL (13.5-17.5); IMMATURE GRAN ABSOLUTE AUTO 0.02 K/mm3 (0.00-0.10); IMMATURE GRAN PERCENT AUTO 0 % (0-1); LYMPHOCYTES ABSOLUTE AUTO 1.21 K/mm3 (0.84-5.20); LYMPHOCYTES PERCENT AUTO 16 % (21-46); MONOCYTES ABSOLUTE AUTO 0.34 K/mm3 (0.16-1.47); MONOCYTES PERCENT AUTO 5 % (4-13); Mean Corpuscular HGB 27.7 pg (26.0-34.0); Mean Corpuscular HGB Conc 30.7 g/dL (31.5-36.5); Mean Corpuscular Volume 90 fL (80-100); Mean Platelet Volume 11.3 fL (9.1-12.4); NEUTROPHILS ABSOLUTE AUTO 5.72 K/mm3 (1.96-9.15); NEUTROPHILS PERCENT AUTO 76 % (41-73); Platelet Count 178 K/mm3 (150-400); RDW Coefficient Variation 14.6 % (11.7-14.2); RDW Standard Deviation 49.1 fL (35.1-46.3); Red Blood Cell Count 3.86 M/mm3 (4.30-5.90); White Blood Cell Count 7.48 K/mm3 (4.00-11.30)
[2021-11-04 16:58] LABS: Albumin, Blood 3.2 g/dL (3.4-5.0); Albumin/Globulin Ratio 0.9 (0.8-1.8); Bilirubin, Total 0.6 mg/dL (0.1-1.0); Bun/Creatinine Ratio 16.3 (12.0-20.0); Calcium, Blood 8.8 mg/dL (8.5-10.1); Creatinine, Blood 1.66 mg/dL (0.60-1.20); Globulin, Blood 3.4 g/dL (2.2-4.0); Potassium, Blood 4.3 mmol/L (3.5-5.5); Total Protein, Blood 6.6 g/dL (6.4-8.2)
--- NOTE | 2021-11-05 01:23 | NUR ---
PATIENT IS A NEW ADMIT FROM THE ED. AXOX 4 AND THREE PERSON TRANSFER FROM [facility] TO BED. ON 2L 02 NC AND RA BASELINE. TELEMETRY PLACED AND TECH REPORTS NSR 84. SCUDS PLACED PER ORDER. USES URINAL AT BEDSIDE. PSORIASIS BLE T/O AND ELBOWS-BUE. ABDOMINAL HERNIA. DENIES CHEST PAIN AND N/V. SOB W/EXERTION. REPORTS TWO ASSIST TO BSC. USES CANE AND FWW AT HOME. LIVES WITH SPOUSE. 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 ED RN REPORTS IV LASIX GIVEN PRIOR TRANSFER. BLE EDEMA 3+. ORIENTED TO ROOM AND CALL LIGHT SYSTEM. FOOD PROVIDED PER DIET ORDER. WCTM.
--- NOTE | 2021-11-05 04:19 | NUR ---
SHIFT SUMMARY PATIENT HAD NO ACUTE CHANGES. AXOX 4 AND TWO ASSIST TO BSC. ON 2L O2 NC AND RA BASELINE. PIV REMAINS INTACT. MANAGER FINANCIAL PLANNING REPORTS NSR 84. PATIENT REPORTS RIGHT WRIST BRACE FROM ANGIOGRAM ON 11/03/21. USES URINAL AT BEDSIDE AND ATTENDS WITH IV LASIX GIVEN IN ED BEFORE ADMIT. LAST TROPONIN 146 UP FROM 135. DENIES CHEST PAIN AND N/V. VSS/AFEBRILE. ABDOMINAL HERINIA AND PSORIASIS BLE AND BUE INCLUDING ELBOWS. COOPERATIVE WITH CARE. CALL LIGHT IN REACH. WCTM.
[2021-11-05 05:07] LABS: BASOPHILS ABSOLUTE AUTO 0.03 K/mm3 (0.00-0.23); BASOPHILS PERCENT AUTO 1 % (0-2); EOSINOPHILS ABSOLUTE AUTO 0.14 K/mm3 (0.00-0.68); EOSINOPHILS PERCENT AUTO 2 % (0-6); Hematocrit 34.6 % (37.0-53.0); Hemoglobin 10.6 g/dL (13.5-17.5); IMMATURE GRAN PERCENT AUTO 0 % (0-1); LYMPHOCYTES ABSOLUTE AUTO 1.12 K/mm3 (0.84-5.20); LYMPHOCYTES PERCENT AUTO 17 % (21-46); MONOCYTES ABSOLUTE AUTO 0.46 K/mm3 (0.16-1.47); MONOCYTES PERCENT AUTO 7 % (4-13); Mean Corpuscular HGB Conc 30.6 g/dL (31.5-36.5); Mean Corpuscular Volume 92 fL (80-100); Mean Platelet Volume 11.3 fL (9.1-12.4); NEUTROPHILS ABSOLUTE AUTO 4.86 K/mm3 (1.96-9.15); NEUTROPHILS PERCENT AUTO 74 % (41-73); Platelet Count 155 K/mm3 (150-400); RDW Coefficient Variation 14.8 % (11.7-14.2); RDW Standard Deviation 49.7 fL (35.1-46.3); Red Blood Cell Count 3.78 M/mm3 (4.30-5.90); White Blood Cell Count 6.61 K/mm3 (4.00-11.30)
[2021-11-05 05:50] LABS: Bun/Creatinine Ratio 16.4 (12.0-20.0); Creatinine, Blood 1.71 mg/dL (0.60-1.20); Potassium, Blood 3.8 mmol/L (3.5-5.5)
--- NOTE | 2021-11-05 19:58 | NUR ---
END OF SHIFT SUMMARY: PATIENT DENIED CHEST PAIN OR DISCOMFORT THROUGHOUT THE SHIFT. PATIENT DENIED SHORTNESS OF BREATH. PATIENT INITIALLY REQUIRED 2L VIA O2 AT THE BEGINNING OF THE SHIFT, BUT WAS ABLE TO WEEN THE PATIENT TO RA BY THE AFTERNOON (95% ON RA). PATIENT UP TO THE CHAIR WITHOUT SHORTNESS OF BREATH. PATIENT INITIALLY WAS IN NSR THIS MORNING. IN THE EVENING, PATIENT WAS NSR WITH PVCS AND FREQUENT PACS IN THE 80S-90S. PATIENT ASYMPTOMATIC. PATIENT SITTING CALMLY EATING HIS DINNER. PATIENT DENIED CHEST PAIN, CHEST DISCOMFORT OR SHORTNESS OF BREATH. PATIENT VISITED BY MATT FROM PALLIATIVE CARE. PATIENT APPRECIATIVE OF CARE AND WAS HAPPY TO RECEIVE SOME ADDITIONAL ITEMS TO OCCUPY HIS MIND DURING STAY.
--- NOTE | 2021-11-06 05:20 | NUR ---
SHIFT SUMMARY 85 YR M ADMITTED ON 11/04/21 FOR ACUTE ON CHRONIC SINUS HEART FAILURE. DNR. NO ACUTE CHANGES THIS SHIFT. SOB HAS BEEN RESOLVED AND PT IS NO LONGER USING O2. 1500 ML FLUID RESTRICTION WAS USED UP BEFORE THIS SHIFT SO PT HAD NOTHING NPO. HOWEVER HE DID HAVE A QUITE LARGE INCONTINENT VOID. AT END OF SHIFT HE WAS SINUS W/ PAC'S PER HVAC ENGINEERING TECHNICIAN. MORING VITALS ARE STABLE.
[2021-11-06 05:41] LABS: Bun/Creatinine Ratio 17.3 (12.0-20.0); Calcium, Blood 8.9 mg/dL (8.5-10.1); Creatinine, Blood 1.85 mg/dL (0.60-1.20); Potassium, Blood 3.7 mmol/L (3.5-5.5)
[2021-11-06] MEDS ORDERED: FURO40 PO (12:01)
--- NOTE | 2021-11-06 12:30 | NUR ---
Pt sitting in chair eating his lunch. Pt being D/C home with home health. Pt denies pain and dyspnea at this time. Pt reports plan to F/U with oil field rig builder when D/C. Discussed the importance of asking questions to oil field rig builder regarding options for treatment including risk and benefits of options. Pt expresses appreciation and reports no concerns at this time. Spoke with Primary RN Maria Luz and discussed case. Spoke with Earnest Jones and discussed case. Palliative Care will remain available.
--- NOTE | 2021-11-06 13:20 | NUR ---
PATIENT D/C'D TO HOME WITH . DC INSTRUCTIONS AND EDUCATION DISCUSSED WITH PATIENT AND COPY PROVIDED. RX MEDICATIONS FAXED TO [facility]. F/U APPOINTMENTS MADE WITH DR. ENRIQUEZ AND DR. RUIZ. PATIENT DENIES ANY FURTHER QUESTIONS OR CONCERNS.
--- NOTE | 2021-11-06 16:25 | NUR ---
PATIENT LEFT PILL BOXES FULL OF HOME MEDICATIONS HERE. JOSHUA CONTACTED AND MEDICATIONS TAKEN TO PHARMACY FOR MAGDALENO TO DOOR BUILDER TOMORROW.
--- NOTE | 2021-11-07 09:58 | NUR ---
Received referral from nurse progressive care nurse (Karen Brito) on 11/06/2021 at 1227. Patient was admitted to [facility] on 11/04/2021 due to acute on chronic systolic congestive heart failure. Patient discharged 11/06/2021 at 1323 with orders for home health and elected [facility]. Contacted patient at number provided on demographic sheet today- 11/07/2021 at 0970 to further discuss the above. Spoke with patient's (Devora Dang) who declines home health services for her /patient at this time stating "we don't need anything at this time. We told the lady that yesterday". Informed patient's that if they changed their mind they could always request services through their primary care provider. Patient's verbalized understanding. No further interventions required. Mallorie Dinh Referral Liaison
[2021-11-11] MEDS ORDERED: METO50ER PO (14:27)
== END 2021-11-06 13:23 | disposition home health service (06) | DRG 291 ==
LOC: ER 15:57 → MEDS 16:20
PROVIDERS: Family Medicine; Internal Medicine; Physician Assistant; ADMIT Internal Medicine
DX: I13.0 Hypertensive heart and chronic kidney disease with heart failure and stage 1 through stage 4 chronic kidney disease, or unspecified chronic kidney disease (principal); I50.23 Acute on chronic systolic (congestive) heart failure; I82.891 Chronic embolism and thrombosis of other specified veins; N18.30 Chronic kidney disease, stage 3 unspecified; I25.10 Atherosclerotic heart disease of native coronary artery without angina pectoris; Z88.1 Allergy status to other antibiotic agents; Z91.018 Allergy to other foods; Z86.16 Personal history of COVID-19; N40.0 Benign prostatic hyperplasia without lower urinary tract symptoms; K21.9 Gastro-esophageal reflux disease without esophagitis; Z79.01 Long term (current) use of anticoagulants; Z72.89 Other problems related to lifestyle; Z96.651 Presence of right artificial knee joint
CPT/HCPCS: 36415; 71045; 80048; 80053; 83880; 84484; 85025; 93005; 93010; 96374; 99285-25; A9270; J1940

== ENCOUNTER → 2022-04-02 | Outpatient (CLI) | payer OTHER ==
[~2022-04-02] MED LIST changes: +FURO20 PO; +FURO40 PO; +METO25ER PO
== END | disposition home or self-care (01) ==
LOC: LAB 14:36 → LAB SHORT 14:36
DX: L08.0 Pyoderma (principal)
CPT/HCPCS: 87070; 87077; 87186; 87205

== ENCOUNTER 2022-07-21 16:03 | Inpatient (IN) | payer OTHER ==
[~2022-07-21] VITALS: Ht 185.4 cm; Wt 95.2 kg
[2022-07-21 17:29] LABS: Albumin, Blood 3.5 g/dL (3.4-5.0); Bilirubin, Total 2.5 mg/dL (0.1-1.0); Bun/Creatinine Ratio 25.1 (12.0-20.0); Calcium, Blood 9.1 mg/dL (8.5-10.1); Creatinine, Blood 1.99 mg/dL (0.60-1.20); Globulin, Blood 3.4 g/dL (2.2-4.0); Potassium, Blood 5.1 mmol/L (3.5-5.5); Total Protein, Blood 6.9 g/dL (6.4-8.2)
[2022-07-21 17:50] LABS: Source, Urine Clean Catch
[2022-07-21 18:02] LABS: Appearance, Urine Clear (Clear); Bilirubin, Urine Neg (Neg); Blood, Urine 2+ (Neg); Color, Urine Amber (P-Yellow); Glucose Qualitative, Urine Neg (Neg); Ketones, Urine 1+ (Neg); Leukocyte Esterase, Urine Neg (Neg); Nitrite, Urine Neg (Neg); Protein, Urine 3+ (Neg); Specific Gravity, Urine 1.025 (1.003-1.022); Urobilinogen, Urine NORM (Normal)
[2022-07-21 18:16] LABS: Bacteria Few /hpf; Squamous Epithelial Cells Rare /hpf (Few); White Blood Cells, Urine 0-2 /hpf (0-5)
[2022-07-21 19:39] LABS: Influenza A, PCR NEGATIVE (NEGATIVE); Influenza B, PCR NEGATIVE (NEGATIVE); Resp Syncytial Virus, PCR NEGATIVE (NEGATIVE); SARS-Cov-2 (COVID-19) PCR, MMC NEGATIVE (NEGATIVE)
[2022-07-21 20:31] LABS: BASOPHILS ABSOLUTE AUTO 0.03 K/mm3 (0.00-0.23); BASOPHILS PERCENT AUTO 0 % (0-2); EOSINOPHILS ABSOLUTE AUTO 0.07 K/mm3 (0.00-0.68); EOSINOPHILS PERCENT AUTO 1 % (0-6); Hematocrit 44.2 % (37.0-53.0); Hemoglobin 14.3 g/dL (13.5-17.5); IMMATURE GRAN ABSOLUTE AUTO 0.03 K/mm3 (0.00-0.10); IMMATURE GRAN PERCENT AUTO 0 % (0-1); LYMPHOCYTES ABSOLUTE AUTO 1.92 K/mm3 (0.84-5.20); LYMPHOCYTES PERCENT AUTO 17 % (21-46); MONOCYTES PERCENT AUTO 7 % (4-13); Mean Corpuscular HGB 28.4 pg (26.0-34.0); Mean Corpuscular HGB Conc 32.4 g/dL (31.5-36.5); Mean Corpuscular Volume 88 fL (80-100); Mean Platelet Volume 10.8 fL (9.1-12.4); NEUTROPHILS ABSOLUTE AUTO 8.49 K/mm3 (1.96-9.15); NEUTROPHILS PERCENT AUTO 75 % (41-73); Platelet Count 217 K/mm3 (150-400); RDW Coefficient Variation 17.8 % (11.7-14.2); Red Blood Cell Count 5.03 M/mm3 (4.30-5.90); White Blood Cell Count 11.34 K/mm3 (4.00-11.30)
--- NOTE | 2022-07-22 02:31 | NUR ---
Patient arrived to PCU 14 at 2250. A/O to self, family, and situation. Thinks its October 2021. Patient is NPO pending a speech eval. Weakness noted all over. Maintains over 95% on RA, LS clear on top and coarse at bases. Tachypneic with RR in 30's. Moist and nonproductive cough. 2:1 Aflutter on tele 100-120's. SBP 130's, DBP low 100's. Patient has faint +1 pulses t/o, very cold skin, 3+ pitting edema BLE and 1+ to BUE. Patient is incontinent of urine and stool, and has multiple perineal wounds. Scrotal edema and abrasions. Coccyx pressure wound that has intact skin. Q2 turns and condom cath applied to keep urine off the wounds. Yellow urine output. Dry/fissured tongue. Patient reports "feeling like I'm going to " and was panicked. ST alarms at tele alarming for ST elevation. EKG performed and placed in chart. Patient received sepsis fluid bolus and had very minimal urine output. Bladder scan showed only 3ml.
[2022-07-22 04:50] LABS: Bun/Creatinine Ratio 27.6 (12.0-20.0); Calcium, Blood 9.2 mg/dL (8.5-10.1); Creatinine, Blood 2.1 mg/dL (0.60-1.20); Potassium, Blood 5.1 mmol/L (3.5-5.5)
[2022-07-22 05:31] LABS: Base Excess Venous -15.4 mmol/L; Bicarbonate Venous 13.1 mmol/L (24.0-30.0); PCO2 Venous 38.1 mmHg (38-42); pH Blood Venous 7.16 (7.34-7.37)
--- NOTE | 2022-07-22 05:52 | NUR ---
Since coming to pcu, patients RR continued to increase and mentation decrease. Urine output is scant and bladder scan shows 17ml. Critical Lactic acid of 7.1 called into resident who ordered repeat troponin, a VBG, bipap, and D5 1/2 d/t patients CBG steadily decreasing. No repeat lactic acid or new antibiotics at this time. VBG critical called in and orders for bipap and 1 amp bicarb and to recheck VBG in 2 hours. Patients work of breathing is improving with use of bipap. VS continue to remain stable. Extremities are very cold with poor perfusion, rectal probe shows temp WNL.
[2022-07-22 07:57] LABS: Base Excess Venous -12.6 mmol/L; Bicarbonate Venous 14.6 mmol/L (24.0-30.0); PCO2 Venous 44.1 mmHg (38-42)
[2022-07-22 07:58] LABS: pH Blood Venous 7.17 (7.34-7.37)
[2022-07-22 09:59] LABS: Albumin, Blood 3.1 g/dL (3.4-5.0); Anion Gap 15 mmol/L (6-16); Blood Urea Nitrogen 65 mg/dL (8-24); Bun/Creatinine Ratio 27.8 (12.0-20.0); CO2, Blood 16 mmol/L (21-32); Calcium, Blood 8.2 mg/dL (8.5-10.1); Chloride, Blood 112 mmol/L (98-108); Creatinine, Blood 2.34 mg/dL (0.60-1.20); Glomerular Filtration Rate 26 (60-); Glucose, Blood 114 mg/dL (70-99); Potassium, Blood 4.8 mmol/L (3.5-5.5); Sodium, Blood 143 mmol/L (136-145)
[2022-07-22 10:01] LABS: PCO2 Arterial 24.2 mmHg (35-45); PO2 Arterial 104 mmHg (80-100)
--- NOTE | 2022-07-22 11:16 | NUR ---
CONTACTED ABOUT PT SBP'S DROPPING TO 80-90'S. INFORMED AND INFORMED THIS RN TO CONTINUE RUNNING D5W PER ORDERS.
--- NOTE | 2022-07-22 11:54 | NUR ---
Spoke with ICU recording studio setup worker Stacey and discussed case. Pt currently in PCU but may be heading towards transfer to ICU for pressors as Pt's B/P is running low. Pt and family may benefit from supportive conversation. Pt resting in bed and appears significantly lethargic. Pt struggling with responding verbally. Moderate dyspnea noted. Attempted to call Pt's spouse. Left message with request for a return phone call.
--- NOTE | 2022-07-22 13:21 | NUR ---
Received call from floor coverer apprentice Kayla reporting Pt's spouse is at bedside. Pt resting in bed and on BIPAP. Pt remains significantly lethargic and has his eyes closed throughout conversation with spouse Devora. Provided update to Devora and reviewed plan of care. Devora reports Pt would not want escalation of care and would not want to go to ICU, would not want central line placed to recieve pressors. She reports Pt has been adamant in regards of not wanting his life prolonged. She reports Pt now requires assistance with transfers, does not walk, needs assistance with dressing and bathing. She reports Pt has refused bathing for quite some time. Pt also experiences incontinence. She reports no longer having the ability to care for Pt. Continued supportive visit. Spoke with Primary RN Marquez and discussed case. Palliative Care will remain available.
--- NOTE | 2022-07-22 14:46 | NUR ---
UPDATE AT 1436, PT WAS HEARD GRUNTING FROM WITHIN HIS ROOM. THIS RN WAS ENTERING PT ROOM, BEST SECOND JOBS CALLED TO INFORM THAT THE PT HR HAS DROPPED TO THE 30'S. UPON ENTERING PT ROOM ALONG WITH MATT FROM PALLIATIVE, PT WAS NO LONGER RESPONSIVE. THIS RN AND PALLIATIVE RN ATTEMPTED TO FEEL FOR PULSES, NO PULSES PALPABLE. THIS RN ATTEMPTED TO AUSCLETATE FOR HEART BEAT, NON PRESENT UPON AUSCLETATION. THIS RN CONTACTED HEART COORDINATOR ABOUT PT SITUATION, RAPID CALLED BY HEART COORDINATOR, PT DNR, NO INTERVENTIONS DONE. NOTIFIED BY HEART COORDINATOR. AFTER NO HEART BEAT NOTED BY 2 RN, TIME OF NOTED AT 1433.
--- NOTE | 2022-07-22 15:14 | NUR ---
CONSTRUCTION SALES REPRESENTATIVE called to Pt's room. Pt has . Called and offered condolences to Pt's spouse Devora. Discussed homes to choose from with spouse requesting [facility]. She also requests for staff to hold Pt's belongings including wedding ring and she will pick them up from the hospital.
--- NOTE | 2022-07-22 15:28 | NUR ---
"Spiritual Care Phone Call | Palliative Care Request Contacted Pts. spouse by phone approx. 15:15 on 07/22/22. Condolences were offered to spouse. Spouse verbalized that while the Pt. identified as gnosticism, that he didn't practice his yeimy. Listened supportively. Normalized the Family/ home experience, and encouraged her to make sure the home knew that he served in the [employer]. Spouse verbalized gratitude for the spiritual care call, but declined any further spiritual care."
== END 2022-07-22 16:14 | DRG 871 ==
LOC: ER 16:03 → PCU 21:06
PROVIDERS: Emergency Medicine; Family Medicine; Internal Medicine; ADMIT Internal Medicine
PROC: 3E03329 Introduction of Other Anti-infective into Peripheral Vein, Percutaneous Approach (ICD-10-PCS; principal; 2022-07-21)
PROC: 5A09357 Assistance with Respiratory Ventilation, Less than 24 Consecutive Hours, Continuous Positive Airway Pressure (ICD-10-PCS; 2022-07-22)
DX: A41.9 Sepsis, unspecified organism (principal); G92.8 Other toxic encephalopathy; J18.9 Pneumonia, unspecified organism; R65.21 Severe sepsis with septic shock; I21.A1 Myocardial infarction type 2; J96.01 Acute respiratory failure with hypoxia; N17.9 Acute kidney failure, unspecified; I48.20 Chronic atrial fibrillation, unspecified; I48.92 Unspecified atrial flutter; I50.22 Chronic systolic (congestive) heart failure; I13.0 Hypertensive heart and chronic kidney disease with heart failure and stage 1 through stage 4 chronic kidney disease, or unspecified chronic kidney disease; Z66 Do not resuscitate; R74.01 Elevation of levels of liver transaminase levels; N18.30 Chronic kidney disease, stage 3 unspecified; N40.0 Benign prostatic hyperplasia without lower urinary tract symptoms; I25.10 Atherosclerotic heart disease of native coronary artery without angina pectoris; Z20.822 Contact with and (suspected) exposure to COVID-19; B95.7 Other staphylococcus as the cause of diseases classified elsewhere; K21.9 Gastro-esophageal reflux disease without esophagitis; L40.59 Other psoriatic arthropathy; R77.8 Other specified abnormalities of plasma proteins; R94.5 Abnormal results of liver function studies; Z96.651 Presence of right artificial knee joint; Z86.718 Personal history of other venous thrombosis and embolism; Z79.82 Long term (current) use of aspirin; Z86.711 Personal history of pulmonary embolism; I25.2 Old myocardial infarction; Z79.01 Long term (current) use of anticoagulants; Z88.8 Allergy status to other drugs, medicaments and biological substances; Z88.1 Allergy status to other antibiotic agents; Z79.899 Other long term (current) drug therapy; Z79.02 Long term (current) use of antithrombotics/antiplatelets
CPT/HCPCS: 0241U; 36415; 36600; 51701; 70450; 71045; 71250; 76705; 80048; 80053; 80069; 81001; 82803; 82947; 83605; 83880; 84145; 84484; 85025; 87040; 93005; 93010; 94660; 94762; 96361-59; 96374-59; 96375-59; 99285-25; C1751; J0696; J2543; J7030; J7042; J7120